=== PATIENT | female | born 1995 | race Caucasian/White ===

== ENCOUNTER 2017-05-07 01:17 | Emergency (ER) | payer MEDICAID ==
[~2017-05-07] VITALS: Ht 157.5 cm; Wt 96.2 kg
[2017-05-07 01:44] VITALS: BP 104/66
== END 2017-05-07 05:19 | disposition left against medical advice (07) ==
LOC: ER 04:42
DX: R51 Headache (principal); R10.9 Unspecified abdominal pain; Z53.21 Procedure and treatment not carried out due to patient leaving prior to being seen by health care provider